=== PATIENT | male | born 1980 | race African-American/Black ===

== ENCOUNTER 2018-10-30 14:01 | Emergency (ER) | payer MEDICAID ==
[~2018-10-30] VITALS: Ht 167.6 cm; Wt 73.6 kg
[2018-10-30 14:06] VITALS: Ht 167.6 cm; Wt 73.6 kg
[2018-10-30 14:33] LABS: BASOPHILS 0.4 % (0-2); EOSINOPHILS 2.5 % (0-7); HEMATOCRIT 47.9 % (42.0-54.0); IMMATURE GRANULOCYTES 0.4 % (0-5); LYMPHOCYTES 34.7 % (15-50); MCH 32.3 pg (26.0-34.0); MCHC 35.5 g/dL (31.0-37.0); MCV 91.1 fL (80.0-100.0); MEAN PLATELET VOLUME 10.2 fL (7.4-10.4); MONOCYTES 9.9 % (2-11); NEUTROPHILS 52.1 % (40-80); PLATELET COUNT 261 10x3/uL (130-400); RBC 5.26 10x6/uL (4.20-6.10); RDW 13.1 % (11.5-14.5); WBC 7.6 10x3/uL (4.8-10.8)
[2018-10-30 14:45] LABS: APTT 28.1 SECONDS (22.8-39.4); INR 1.18 (0.85-1.17); PROTIME 14.5 SECONDS (11.6-15.0)
[2018-10-30 14:49] LABS: ALBUMIN 4.9 g/dL (3.4-5.0); ALKALINE PHOSPHATASE 102 U/L (46-116); ALT (SGPT) 33 U/L (10-68); BILIRUBIN - TOTAL 0.52 mg/dL (0.2-1.3); CALC OSMOLALITY 277 mosm/kg (275-300); CARBON DIOXIDE 21.7 mmol/L (21.0-32.0); CHLORIDE - SERUM 99 mmol/L (98-107); CREATININE - SERUM 1.8 mg/dL (0.6-1.3); GLUCOSE 92 mg/dL (74-106); POTASSIUM - SERUM 3.5 mmol/L (3.5-5.1); PROTEIN - SERUM 9.1 g/dL (6.4-8.2); SODIUM 137 mmol/L (136-145); UREA NITROGEN 24 mg/dL (7-18); eGFR NON AFRICAN AMERICAN 45 mL/min (90-120)
[2018-10-30 15:01] LABS: CKMB 1.2 U/L (0.0-3.6); CREATINE KINASE 693 UL (21-232); MAGNESIUM - SERUM 2.3 mg/dL (1.8-2.4); TROPONIN-I 0.029 ng/mL (0.000-0.060)
[2018-10-30] MEDS ORDERED: STERAPRED 5MG 65 M1 PO (17:07)
[2018-10-30 18:18] VITALS: BP 128/82
== END 2018-10-30 18:18 | disposition home or self-care (01) ==
LOC: D.ER 14:01
PROVIDERS: Family Medicine
DX: N28.9 Disorder of kidney and ureter, unspecified (principal); E86.0 Dehydration